=== PATIENT | female | born 1985 | race Caucasian/White ===

== ENCOUNTER 2018-01-10 20:10 | Emergency (ER) | payer MEDICAID, SELFPAY ==
[2018-01-10 20:10] VITALS: BP 90/65; PULSE 79; RESP 14; TEMP 36.7; O2SAT 99; BMI 19.8
[2018-01-10] MEDS: Tetracaine 0.5% Ophthalmic Bottle 1 DRP RIGHT EYE (20:45)
[2018-01-10] MEDS: Fluorescein 1 MG STRIP 1 STRIP RIGHT EYE (20:45)
--- NOTE | 2018-01-10 20:51 | ED.VISSUMM ---
- ER Visit Summary Date of Service: 01/10/18 Chief Complaint: [Right eye pain] History of Present Illness: The patient is a 32 F [presents to the emergency department with complaint of right eye pain that started 8 days ago. Patient denies any trauma. Patient states that she had a blood vessel that had burst in her eye and she was seen in urgent care and they told her she had a sub-conjunctival hemorrhage. Patient states that she has some blurred vision at times and at times some matting of the eye. Patient describes a photophobia from time to time. Patient denies any trauma to her eye or foreign body sensation. She also has some mild discomfort over the area of the right restorationism. Patient has not had any fevers.] Physical Examination: [HEENT-PERRLA, EOMI. Cranial nerves II through XII grossly intact. TMs clear. Mucous membranes moist. No adenopathy. Visual acuity was 20/50 right eye, 20/70 left eye, 20/70 both eyes. Patient has small resolving subconjunctival hemorrhage noted. Right eye was stained and no fluorescein uptake noted. Using tonometer I measure the right eye pressure to be 23. Eyelids were everted no foreign bodies noted. Cardiovascular-regular rate and rhythm without murmur or ectopy Lungs-clear to auscultation, chest wall stable without crepitus or subcu emphysema Abdomen-normoactive bowel sounds, soft, nontender, no rebound or rigidity, no peritoneal signs. Extremities-intact ?4, normal range of motion, normal pulses, atraumatic] Test Results: [Right eye pressure was 23] Emergency Department Course and Treatment: [Patient will be started on gentamicin ophthalmic drops] Treatment Plan: [Patient referred to ophthalmology on-call Dr. Robert Duggan.] Disposition: [Discharged home in stable condition] Impression: [Right eye pain-etiology uncertain] This note was generated with [employer] dictation software. It may contain incorrect words, spelling, and punctuation that were not noted in review of the chart prior to signing ED Disposition - Plan for ED Patient: Chief Complaint: Eye Problem Referrals: Eric Barnes MD [Primary Care Provider] -
--- NOTE | 2018-01-10 20:54 | ED.DCSUM_ITS ---
- ER Visit Summary Date of Service: 01/10/18 Chief Complaint: [Right eye pain] History of Present Illness: The patient is a 32 F [presents to the emergency department with complaint of right eye pain that started 8 days ago. Patient denies any trauma. Patient states that she had a blood vessel that had burst in her eye and she was seen in urgent care and they told her she had a sub- conjunctival hemorrhage. Patient states that she has some blurred vision at times and at times some matting of the eye. Patient describes a photophobia from time to time. Patient denies any trauma to her eye or foreign body sensation. She also has some mild discomfort over the area of the right taoist. Patient has not had any fevers.] Physical Examination: [HEENT-PERRLA, EOMI. Cranial nerves II through XII grossly intact. TMs clear. Mucous membranes moist. No adenopathy. Visual acuity was 20/50 right eye, 20/70 left eye, 20/70 both eyes. Patient has small resolving subconjunctival hemorrhage noted. Right eye was stained and no fluorescein uptake noted. Using tonometer I measure the right eye pressure to be 23. Eyelids were everted no foreign bodies noted. Cardiovascular-regular rate and rhythm without murmur or ectopy Lungs-clear to auscultation, chest wall stable without crepitus or subcu emphysema Abdomen-normoactive bowel sounds, soft, nontender, no rebound or rigidity, no peritoneal signs. Extremities-intact ?4, normal range of motion, normal pulses, atraumatic] Test Results: [Right eye pressure was 23] Emergency Department Course and Treatment: [Patient will be started on gentamicin ophthalmic drops] Treatment Plan: [Patient referred to ophthalmology on-call Dr. Robert Duggan.] Disposition: [Discharged home in stable condition] Impression: [Right eye pain-etiology uncertain] This note was generated with [employer] dictation software. It may contain incorrect words, spelling, and punctuation that were not noted in review of the chart prior to signing ED Disposition - Plan for ED Patient: Chief Complaint: Eye Problem Referrals: Eric Barnes MD [Primary Care Provider] -
--- NOTE | 2018-01-10 20:54 | ED.DEP ---
ED Disposition - Plan for ED Patient: Chief Complaint: Eye Problem Instructions: ED Eye Injury Subconj Hemorrhage Referrals: Eric Barnes MD [Primary Care Provider] - Roland Duggan MD [STAFF PHYSICIAN] - 1-2 Days if not improving
[2018-01-10] MEDS: Gentamicin Sulfate 1 OPTH.BTL 2 DRP RIGHT EYE (20:56)
== END 2018-01-10 21:01 | disposition home or self-care (01) ==
PROVIDERS: Emergency Provider Emergency Medicine
DX: H57.11 Ocular pain, right eye (principal); Z72.0 Tobacco use
CPT/HCPCS: 99283

== ENCOUNTER → 2021-02-14 | Outpatient (CLI) | payer MEDICAID, SELFPAY | END | disposition home or self-care (01) | PROVIDERS: Referring Provider Physician Assistant; Visit Provider Physician Assistant | DX: R05 Cough (principal); R50.9 Fever, unspecified | CPT/HCPCS: 87635; U0005; U0003 ==